=== PATIENT | male | born 1965 | race Two or more races ===

== ENCOUNTER 2024-02-08 18:27 | Emergency (ER) | payer OTHER ==
[~2024-02-08] VITALS: Ht 185.4 cm; Wt 99.8 kg
[2024-02-08] MEDS ORDERED: PLAVIX75 MG PO (18:46)
[2024-02-08] MEDS ORDERED: PREVACID30 MG (18:47)
[2024-02-08] MEDS ORDERED: PRAVASTATIN SOD10 MG PO (18:47)
[2024-02-08] MEDS ORDERED: TOPROL XL25 M1 PO (18:47)
[2024-02-08] MEDS ORDERED: AVAPRO150 MG (18:47)
[2024-02-08 20:52] LABS: HEMATOCRIT 43.5 % (39.0-48.0); HEMOGLOBIN 14.9 g/dL (13-16.00); MEAN CELL VOLUME 86.7 fL (80.0-100.00); MEAN CORPUSCULAR HEMOGLOBIN 29.7 pg (27.00-32.0); MEAN CORPUSCULAR HGB CONC 34.3 g/dl (32.0-36.0); PLATELET COUNT 221 K/uL (150-450); RED BLOOD COUNT 5.02 M/uL (4.00-6.00)
[2024-02-08 21:10] LABS: URINE APPEARANCE Clear; URINE BILIRRUBIN Negative (NEGATIVE); URINE BLOOD Negative; URINE COLOR Yellow; URINE GLUCOSE Negative (NEGATIVE); URINE KETONE Trace (NEGATIVE); URINE LEUKOCYTE Negative; URINE NITRATE Negative; URINE PROTEIN Negative (NEGATIVE)
[2024-02-08 21:13] LABS: URINE BACTERIA 32.7 uL (0.0-1933); URINE RBC 2.2 uL (0.0-20.8); URINE WBC 1.8 uL (0.0-23.2)
[2024-02-08 21:14] LABS: URINE CAST 0.15 uL (0.0-1.40); URINE EPITHELIAL CELLS 0.7 uL (0.0-38.8)
[2024-02-08] MEDS ORDERED: KETOROLAC TROMETHAMINE 60 MG VIAL IM ONE (22:15)
== END 2024-02-08 22:29 ==
LOC: ER 18:28
PROVIDERS: Nurse Practitioner Family
DX: K62.89 Other specified diseases of anus and rectum (principal); I10 Essential (primary) hypertension